=== PATIENT | male | born 1995 | race Caucasian/White ===

== ENCOUNTER → 2020-06-01 | Outpatient (CLI) | payer BC | LOC: ZCOL.LAB 16:42 | DX: Z20.828 Contact with and (suspected) exposure to other viral communicable diseases (principal) ==

== ENCOUNTER 2021-11-11 07:45 | Emergency (ER) | payer BC ==
[~2021-11-11] VITALS: Ht 182.9 cm; Wt 131.8 kg
[2021-11-11 08:31] LABS: BASO % 0.5 % (0.0-2.0); EOS # 0.2 K/mm3 (0.0-0.7); EOS % 1.8 % (0.0-4.0); GRAN # 5.7 K/mm3 (1.4-6.5); GRAN % 64.7 % (42.2-75.2); LYMPH # 2.2 K/mm3 (1.2-3.4); LYMPH % 25.1 % (20.0-51.0); MEAN CELL VOLUME 85 fl (80.0-100.0); MEAN CORPUSCULAR HEMOGLOBIN 29 pg (27-31); MEAN CORPUSCULAR HGB CONC 34 g/dl (33.0-37.0); MEAN PLATELET VOLUME 9.7 fl (7.4-10.4); MONO # 0.7 K/mm3 (0.1-0.6); MONO % 7.7 % (1.7-9.3); PLATELET COUNT 292 K/mm3 (130-400); RED BLOOD COUNT 6.22 M/mm3 (4.20-5.60); REDCELL DISTRIBUTION WIDTH-CV 11.9 % (11.5-14.5)
[2021-11-11 08:34] LABS: HEMATOCRIT 52.8 % (42.0-52.0)
[2021-11-11 08:54] LABS: ALANINE AMINOTRANSFERASE 44 U/L (0-55); ALBUMIN 4.3 gm/dL (3.5-5.0); ALKALINE PHOSPHATASE 62 U/L (40-150); ANION GAP 11 mmol/L (7-16); AST,SGOT 27 U/L (5-34); BILIRUBIN,TOTAL 0.9 mg/dL (0.2-1.2); BLOOD UREA NITROGEN 15 mg/dL (9-21); CARBON DIOXIDE 26 mmol/L (22-29); CHLORIDE 100 mmol/L (98-107); CREATININE, serum 0.83 mg/dL (0.72-1.25); GLUCOSE 95 mg/dL (70-99); POTASSIUM 4.5 mmol/L (3.5-4.5); SODIUM 137 mmol/L (136-145)
[2021-11-11 09:02] LABS: TROPONIN-I < 0.010 ng/mL (0.00-0.033)
[2021-11-11] MEDS ORDERED: NORCO 325 MG-51 TAB PO (09:51)
[2021-11-11] MEDS ORDERED: MOTRIN 800800 MG/TAB PO (09:51)
[2021-11-11 10:06] VITALS: BP 123/85; PULSE 83
== END 2021-11-11 10:06 | disposition home or self-care (01) ==
LOC: COL.ER 07:45
PROVIDERS: Personal Emergency Response Attendant
DX: R07.89 Other chest pain (principal); R00.0 Tachycardia, unspecified; Z86.16 Personal history of COVID-19
CPT/HCPCS: J7030; Q9967